=== PATIENT | female | born 1950 | race Caucasian/White ===

== ENCOUNTER → 2016-12-23 | Outpatient (REF) ==
[~2016-12-23] MED LIST: ASPIRIN E.C. 8181 MG PO; BYSTOLIC10 MG PO; BYSTOLIC5 MG PO; CALTRATE-600 W600 MG PO; CHO PO; GLUCOSAMINE PO; GLUCOSAMINE/CHO1 CA1 PO; MULTIVITAMIN PO; MULTIVITAMIN WI1 CAP PO; NABUMETONE500 MG PO; PROZAC40 MG PO; RELAFEN 50500 MG/TAB PO; SUPER EPA 1201200 MG PO
[2016-12-23 19:49] LABS: THYROID STIMULATING HORMONE 1.29 uIU/mL (0.465-4.680)
== END ==
LOC: ZLAB.WCH 19:08
PROVIDERS: Nurse Practitioner Family
DX: Z01.89 Encounter for other specified special examinations (principal)

== ENCOUNTER → 2017-03-18 | Outpatient (REF) | LOC: ZLAB.WCH 15:49 | DX: Z01.89 Encounter for other specified special examinations (principal) ==

== ENCOUNTER → 2018-03-04 | Outpatient (REF) | LOC: ZLAB.WCH 15:42 | DX: Z01.89 Encounter for other specified special examinations (principal) ==